=== PATIENT | male | born 1960 | race Caucasian/White ===

== ENCOUNTER 2016-09-23 03:55 | Emergency (ER) | payer OTHER ==
[~2016-09-23] VITALS: Ht 180.3 cm; Wt 124.6 kg
[~2016-09-23 03:55] MED LIST: ACETAMINOPHEN500 MG PO; ADULT LOW DOSE81 M1 PO; AZITHROMYCIN500 M1 PO; CARAFATE1 GM PO; DILAUDID2 MG PO; ESCITALOPRAM OX20 MG PO; FLOMAX0.4 MG PO; HYDROCODON-ACE1 EACH; PEPCID20 MG PO; PHENERGAN-CODE120 ML PO; ST. JOSEPH ASPI81 MG PO; ZESTORETIC 20-1 EAC1 PO; ZITHROMAX Z-PA250 MG PO; ZOFRAN ODT4 MG PO; ZOFRAN ODT8 MG PO; [UNRECOGNIZED DRUG - REMARK]
[2016-09-23] MEDS ORDERED: LEVAQUIN750 MG PO (05:01)
[2016-09-23] MEDS ORDERED: PHENERGAN-CODE120 ML PO (05:01)
[2016-09-23 05:05] VITALS: BP 154/78
== END 2016-09-23 05:20 | disposition home or self-care (01) ==
LOC: EME 03:55
DX: J20.9 Acute bronchitis, unspecified (principal)
CPT/HCPCS: 71020; 80048; 82803; 83605; 83880; 84484; 85027; 87040; 99281; 99285

== ENCOUNTER 2016-09-25 05:37 | Observation (INO) | payer OTHER ==
[~2016-09-25] VITALS: Ht 180.3 cm; Wt 124.6 kg
[~2016-09-25 05:37] MED LIST changes: +LEVAQUIN750 MG PO
[2016-09-25 06:18] LABS: BASE EXCESS -0.2 mEq/L (-3 to +3); CARBOXY HGB 2.2 % (0-5); COMMENTS - BLOOD GASES C+A+; DEVICE ROOM AIR; FI02 21 %; METHEMOGLOBIN 0.9 % (0-1.5); PCO2 37 mm Hg (35-45); PO2 63 mm Hg (80-100); SITE RR; TOTAL RESP RATE 18 resp/min; pH 7.42 (7.35-7.45)
[2016-09-25 06:29] LABS: EOSINOPHIL (%) 1.6 % (0-5); EOSINOPHIL COUNT 0.1 K/uL (0-0.3); LYMPHOCYTE COUNT 1.3 K/uL (1.0-2.8); MONOCYTE (%) 10.1 % (3-12); MONOCYTE COUNT 0.5 K/uL (0-0.8); NEUTROPHIL (%) 61.3 % (45-76); NEUTROPHIL COUNT 3.1 K/uL (1.8-6.4)
[2016-09-25 06:39] LABS: INTER. NORMALIZED RATIO 1.1; PROTHROMBIN TIME 10.9 (9.2-11.2); PTT 29.3 (25-32)
[2016-09-25 06:40] LABS: CHLORIDE 102 mEq/L (99-109); POTASSIUM 3.5 mEq/L (3.7-5.4); SODIUM 136 mEq/L (136-147)
[2016-09-25 06:42] LABS: GLUCOSE 113 mg/dL (70-99)
[2016-09-25 06:43] LABS: ANION GAP 10 MEQ/L (2-14)
[2016-09-25 06:44] LABS: TOTAL BILIRUBIN 0.6 mg/dL (0.0-1.0)
[2016-09-25 06:45] LABS: ALKALINE PHOSPHATASE 47 IU/L (3-129)
[2016-09-25 06:46] LABS: GFR ESTIMATE (CALCULATED) > 59 mL/min/
[2016-09-25 06:47] LABS: UREA NITROGEN (BUN) 15 mg/dL (9-23)
[2016-09-25 06:51] LABS: TROP-I INTERPRETATION NEGATIVE; TROPONIN-I < 0.01 ng/mL (0.0-0.30)
[2016-09-25 07:24] LABS: HEMATOCRIT 39.3 % (38.0-50.0); MCH 30.1 PG (29.0-34.0); MCHC 34.6 G/DL (30.0-36.0); MCV 86.9 FL (86-99); MEAN PLAT.VOLUME 12.7 uM^3 (9.0-12.4); PLAT.SUFFICIENCY ADEQUATE; PLATELET COUNT UNABLE TO REPORT K/uL (156-360); RBC DIS.WIDTH-CV 12.6 % (11.8-14.6); RED BLOOD COUNT 4.52 M/uL (4.00-5.50); USER ID SDF
[2016-09-25] MEDS ORDERED: VALSARTAN-HCTZ1 EAC1 PO (08:48)
[2016-09-25 15:01] VITALS: BP 147/83
[2016-09-25 15:32] LABS: TROP-I INTERPRETATION NEGATIVE; TROPONIN-I < 0.01 ng/mL (0.0-0.30)
[2016-09-25 21:10] VITALS: BP 146/87
[2016-09-26 05:18] VITALS: BP 138/84
[2016-09-26 07:22] VITALS: BP 138/89
[2016-09-26 11:13] VITALS: BP 144/86
[2016-09-26] MEDS ORDERED: DIOVAN40 MG PO (11:27)
== END 2016-09-26 12:52 | disposition home or self-care (01) ==
LOC: EME 05:37 → EDOF 08:50 → 5WEST 08:50 → EDOF 08:50 → 5WEST 14:09
PROVIDERS: Emergency Medicine; Internal Medicine
DX: R55 Syncope and collapse (principal); I95.2 Hypotension due to drugs; T46.5X5A Adverse effect of other antihypertensive drugs, initial encounter; J20.9 Acute bronchitis, unspecified; I10 Essential (primary) hypertension; R42 Dizziness and giddiness; F32.9 Major depressive disorder, single episode, unspecified; E87.6 Hypokalemia; Z80.0 Family history of malignant neoplasm of digestive organs; Z82.0 Family history of epilepsy and other diseases of the nervous system; Z82.49 Family history of ischemic heart disease and other diseases of the circulatory system; Z83.3 Family history of diabetes mellitus
CPT/HCPCS: 36600; 70450; 71010; 80053; 82803; 83605; 84484; 85025; 85610; 85730; 87040; 93005; 93306; 93880; 99281; 99285; G0378; J1650; J2405; J7030

== ENCOUNTER 2017-09-17 17:30 | Emergency (ER) | payer OTHER ==
[~2017-09-17] VITALS: Ht 182.9 cm; Wt 123.9 kg
[~2017-09-17 17:30] MED LIST changes: +DIOVAN40 MG PO; +VALSARTAN-HCTZ1 EAC1 PO
[2017-09-17 18:23] LABS: ALBUMIN 4.2 g/dL (3.2-4.8); PTT 27.4 SEC (25-37)
[2017-09-17 18:24] LABS: CHLORIDE 106 mEq/L (99-109); SODIUM 140 mEq/L (136-147)
[2017-09-17 18:25] LABS: BASOPHIL (%) 0.4 % (0-1); EOSINOPHIL (%) 1.9 % (0-5); EOSINOPHIL COUNT 0.2 K/uL (0-0.3); HEMATOCRIT 42.9 % (38.0-50.0); HEMOGLOBIN 14.6 G/DL (12.5-16.6); IMMATURE GRANULOCYTE (%) 0.4 % (0.0-0.7); LYMPHOCYTE (%) 35.9 % (15-42); LYMPHOCYTE COUNT 2.9 K/uL (1.0-2.8); MCH 30.2 PG (29.0-34.0); MCV 88.6 FL (86-99); MONOCYTE (%) 5.4 % (3-12); MONOCYTE COUNT 0.4 K/uL (0-0.8); NEUTROPHIL COUNT 4.5 K/uL (1.8-6.4); RBC DIS.WIDTH-SD 38.9 % (39-53); RED BLOOD COUNT 4.84 M/uL (4.00-5.50); WHITE BLOOD COUNT 7.9 K/uL (4.1-10.2)
[2017-09-17 18:26] LABS: GLUCOSE 113 mg/dL (70-99)
[2017-09-17 18:28] LABS: TOTAL BILIRUBIN 0.3 mg/dL (0.0-1.0)
[2017-09-17 18:29] LABS: ALKALINE PHOSPHATASE 62 IU/L (3-129)
[2017-09-17 18:30] LABS: CREATININE 0.8 mg/dL (0.6-1.3); GFR ESTIMATE (CALCULATED) > 59 mL/min/ (58.99-99999)
[2017-09-17 18:31] LABS: AST (GOT) 21 IU/L (2-34); UREA NITROGEN (BUN) 16 mg/dL (9-23)
[2017-09-17 18:33] LABS: ALT (GPT) 33 IU/L (3-49)
[2017-09-17 18:35] LABS: TROP-I INTERPRETATION NEGATIVE; TROPONIN-I < 0.01 ng/mL (0.0-0.30)
[2017-09-17 19:01] LABS: IMM.PLATELET FRACTION 33.2 (1-7)
[2017-09-17 21:13] LABS: TROP-I INTERPRETATION NEGATIVE; TROPONIN-I < 0.01 ng/mL (0.0-0.30)
[2017-09-17 21:27] VITALS: BP 144/87
== END 2017-09-17 21:35 | disposition home or self-care (01) ==
LOC: EME 17:30
PROVIDERS: Emergency Medicine
DX: Z04.1 Encounter for examination and observation following transport accident (principal); R55 Syncope and collapse; R11.0 Nausea; R42 Dizziness and giddiness; I10 Essential (primary) hypertension; Z79.82 Long term (current) use of aspirin; Z87.442 Personal history of urinary calculi
CPT/HCPCS: 71045; 80053; 84484; 85025; 85610; 85730; 93005; 99281; 99284; J2405; J7120

== ENCOUNTER 2017-11-21 02:39 | Emergency (ER) | payer OTHER ==
[~2017-11-21] VITALS: Ht 180.3 cm; Wt 121.7 kg
[2017-11-21 03:42] LABS: HEMATOCRIT 41.8 % (38.0-50.0); HEMOGLOBIN 14.4 G/DL (12.5-16.6); MCH 30.3 PG (29.0-34.0); MCHC 34.4 G/DL (30.0-36.0); RBC DIS.WIDTH-CV 12.1 % (11.8-14.6); RBC DIS.WIDTH-SD 38.9 % (39-53); RED BLOOD COUNT 4.75 M/uL (4.00-5.50)
[2017-11-21 03:47] LABS: ALBUMIN 4.2 g/dL (3.2-4.8); CHLORIDE 104 mEq/L (99-109); POTASSIUM 4.3 mEq/L (3.7-5.4); SODIUM 139 mEq/L (136-147)
[2017-11-21 03:50] LABS: GLUCOSE 129 mg/dL (70-99); TOTAL PROTEIN 7.2 g/dL (6.4-8.3)
[2017-11-21 03:52] LABS: TOTAL BILIRUBIN 0.5 mg/dL (0.0-1.0)
[2017-11-21 03:53] LABS: ALKALINE PHOSPHATASE 69 IU/L (3-129); CREATININE 0.9 mg/dL (0.6-1.3); GFR ESTIMATE (CALCULATED) > 59 mL/min/ (58.99-99999)
[2017-11-21 03:54] LABS: UREA NITROGEN (BUN) 13 mg/dL (9-23)
[2017-11-21 03:55] LABS: AST (GOT) 26 IU/L (2-34)
[2017-11-21 03:56] LABS: ALT (GPT) 46 IU/L (3-49); TROP-I INTERPRETATION NEGATIVE; TROPONIN-I < 0.01 ng/mL (0.0-0.30)
[2017-11-21 03:57] LABS: LIPASE 38 U/L (1.0-51.0)
[2017-11-21 04:23] LABS: PLATELET CLUMPS PRESENT - PLATELET COUNTS APPEARS DECREASED; PLATELET COUNT UNABLE TO REPORT K/uL (156-360)
[2017-11-21 05:37] VITALS: BP 178/106
== END 2017-11-21 05:37 | disposition home or self-care (01) ==
LOC: EME 02:39
PROVIDERS: Emergency Medicine
DX: R10.13 Epigastric pain (principal); R10.11 Right upper quadrant pain; K29.70 Gastritis, unspecified, without bleeding; I10 Essential (primary) hypertension; F32.9 Major depressive disorder, single episode, unspecified; J45.909 Unspecified asthma, uncomplicated
CPT/HCPCS: 76705; 80053; 83690; 84484; 85027; 93005; 99281; 99285